=== PATIENT | female | born 1965 | race Caucasian/White ===

== ENCOUNTER 2017-06-17 11:38 | Emergency (ER) | payer BC ==
[~2017-06-17] VITALS: Ht 160 cm; Wt 107.7 kg
[~2017-06-17 11:38] MED LIST: CALCITRIOL0.25 MCG PO; KLOR-CON M2020 MEQ PO; LEVOTHYROXIN0.125 M2; LEVOTHYROXIN0.125 M2 PO; LEVOTHYROXIN0.175 MG PO; LEVOTHYROXINE; LIPI10 PO; MOTRIN800 MG PO; OSCD PO; POTASSIUM CHLO10 MEQ PO; PRI20 PO; PRILOSEC20 MG PO; PRINIVIL10 MG PO; ZESTRIL20 MG PO; ZOC10 PO
[2017-06-17 12:35] LABS: BASOPHIL % 0.6 % (0-2); PLATELET COUNT 294 x10^3mcL (130-400); RED CELL DISTRIBUTION WIDTH 13.2 % (11.5-14.5)
[2017-06-17 12:45] LABS: CALCIUM 8.8 mg/dL (8.5-10.1); CARBON DIOXIDE 29.9 mmol/L (21-32); CHLORIDE SERUM 101 mmol/L (98-107); CREATININE SERUM 0.9 mg/dL (0.6-1.0); GFR1 > 60 mL/min; GLUCOSE SERUM 113 mg/dL (74-106); POTASSIUM SERUM 3.9 mmol/L (3.5-5.1); SODIUM SERUM 138 mmol/L (136-145)
[2017-06-17 12:49] LABS: ALBUMIN 3.7 g/dL (3.4-5.0); ALKALINE PHOSPHATASE 82 U/L (46-116); ALT/SGPT 34 U/L (14-59); AST/SGOT 20 U/L (15-37); BILIRUBIN TOTAL 0.31 mg/dL (0.20-1.00); TOTAL PROTEIN, SERUM 8.1 g/dL (6.4-8.2)
[2017-06-17 15:02] VITALS: BP 145/72
== END 2017-06-17 15:02 | disposition home or self-care (01) ==
LOC: ED 11:38
PROVIDERS: Emergency Medicine
DX: M54.12 Radiculopathy, cervical region (principal); E78.00 Pure hypercholesterolemia, unspecified; Z79.899 Other long term (current) drug therapy; Z91.041 Radiographic dye allergy status
CPT/HCPCS: 36415; Q0092

== ENCOUNTER 2017-12-03 23:44 | Emergency (ER) | payer BC ==
[~2017-12-03] VITALS: Ht 177.8 cm; Wt 104.8 kg
[2017-12-03 23:54] VITALS: Ht 177.8 cm; Wt 104.8 kg
[2017-12-04 01:50] VITALS: BP 132/97
== END 2017-12-04 01:05 | disposition home or self-care (01) ==
LOC: ED 23:44
DX: N30.01 Acute cystitis with hematuria (principal); I10 Essential (primary) hypertension; E78.00 Pure hypercholesterolemia, unspecified; Z90.89 Acquired absence of other organs; Z88.8 Allergy status to other drugs, medicaments and biological substances
CPT/HCPCS: J1885

== ENCOUNTER 2018-05-02 08:24 | Emergency (ER) | payer BC ==
[~2018-05-02] VITALS: Ht 160 cm; Wt 107.0 kg
[2018-05-02 08:32] VITALS: Ht 160 cm; Wt 107.0 kg
[2018-05-02 09:31] LABS: BASOPHIL % 0.6 % (0-2); PLATELET COUNT 258 x10^3mcL (130-400); RED CELL DISTRIBUTION WIDTH 13.2 % (11.5-14.5)
[2018-05-02 09:37] LABS: CALCIUM 8.6 mg/dL (8.5-10.1); CARBON DIOXIDE 29.5 mmol/L (21-32); CHLORIDE SERUM 104 mmol/L (98-107); CREATININE SERUM 0.9 mg/dL (0.6-1.0); GFR1 > 60 mL/min; GLUCOSE SERUM 121 mg/dL (74-106); SODIUM SERUM 142 mmol/L (136-145)
[2018-05-02 09:41] LABS: ALBUMIN 3.7 g/dL (3.4-5.0); ALKALINE PHOSPHATASE 92 U/L (46-116); ALT/SGPT 30 U/L (14-59); AMYLASE 54 U/L (25-115); AST/SGOT 17 U/L (15-37); BILIRUBIN TOTAL 0.3 mg/dL (0.20-1.00); LIPASE 65 IU/L (73-393); TOTAL PROTEIN, SERUM 7.8 g/dL (6.4-8.2)
[2018-05-02 10:56] VITALS: BP 116/74
== END 2018-05-02 10:56 | disposition home or self-care (01) ==
LOC: ED 08:24
PROVIDERS: Emergency Medicine
DX: R10.30 Lower abdominal pain, unspecified (principal); R11.0 Nausea; I10 Essential (primary) hypertension; E78.00 Pure hypercholesterolemia, unspecified; Z90.09 Acquired absence of other part of head and neck; Z91.041 Radiographic dye allergy status
CPT/HCPCS: 36415; J1885

== ENCOUNTER 2019-06-25 19:05 | Emergency (ER) | payer OTHER ==
[~2019-06-25] VITALS: Ht 160 cm; Wt 109.8 kg
[2019-06-25 19:09] VITALS: Ht 160 cm; Wt 109.8 kg
[2019-06-25 19:45] LABS: BASOPHIL % 0.5 % (0-2); PLATELET COUNT 276 x10^3mcL (130-400); RED CELL DISTRIBUTION WIDTH 13.4 % (11.5-14.5)
[2019-06-25 19:55] LABS: CARBON DIOXIDE 28.2 mmol/L (21-32); CHLORIDE SERUM 103 mmol/L (98-107); CREATININE SERUM 0.9 mg/dL (0.6-1.0); GFR1 > 60 mL/min; GLUCOSE SERUM 137 mg/dL (74-106); POTASSIUM SERUM 3.7 mmol/L (3.5-5.1); SODIUM SERUM 143 mmol/L (136-145)
[2019-06-25 20:02] LABS: ALBUMIN 3.6 g/dL (3.4-5.0); ALKALINE PHOSPHATASE 103 U/L (46-116); ALT/SGPT 33 U/L (14-59); AST/SGOT 22 U/L (15-37); BILIRUBIN TOTAL 0.27 mg/dL (0.20-1.00); TOTAL PROTEIN, SERUM 7.1 g/dL (6.4-8.2)
[2019-06-25 22:24] VITALS: BP 125/87
== END 2019-06-25 22:24 | disposition home or self-care (01) ==
LOC: ED 19:05
PROVIDERS: Emergency Medicine
DX: R07.89 Other chest pain (principal); R11.0 Nausea; I10 Essential (primary) hypertension; E78.00 Pure hypercholesterolemia, unspecified; Z91.041 Radiographic dye allergy status; Z90.89 Acquired absence of other organs
CPT/HCPCS: 36415; Q0092